=== PATIENT | male | born 1990 | race Hispanic/Latino ===

== ENCOUNTER 2020-06-19 20:46 | Emergency (ER) | payer SELFPAY ==
[~2020-06-19] VITALS: Ht 175.3 cm; Wt 110.7 kg
[2020-06-19] MEDS ORDERED: TETANUS/DIPHTHERIA TOX ADULT 0.5 ML SYR IM ONE (21:30)
[2020-06-19] MEDS ORDERED: BACITRACIN ZINC 0.9GM TP ONE ×2 (21:30→21:51)
--- NOTE | 2020-06-19 21:39 | NUR ---
IN TO CLEAN AND SUTURE WOUND
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
[2020-06-19] MEDS ORDERED: TETANUS/DIPHTHERIA TOX ADULT 0.5 ML SYR ONE (21:52)
[2020-06-19] MEDS ORDERED: LIDOCAINE HCL 1% LOCAL INJ 20 ML VIAL ONE (22:40)
[2020-06-20 00:17] VITALS: BP 132/66
--- NOTE | 2020-06-20 01:41 | Emergency Department Note ---
History of Present Illnes History of Present Illness Chief Complaint: Laceration History of Present Illness This is a 29 year old right handed male who presents with laceration to his left hand this afternoon. He states that he tripped in a hole, causing the fall and landed on outstretched hand on broken sharp concrete. His tetanus shot is not up-to-date. He denies any numbness tingling or weakness of the affected hand. He states that he washed the wound out with tap water. He denies any possibility of foreign body, including rocks or concrete. Historian: Patient Arrival Mode: Car Customer Insight Analyst Required: No Onset (how long ago): hour(s) Onset quality: sudden Timing of current episode: constant Progression: unchanged Chronicity: new Context: Reports trauma/injury; Denies recent illness Relieving factors: none Exacerbating factors: none Treatments prior to arrival: none Past Medical/Family History Physician Review I have reviewed the patient's past medical and family history. Any updates have been documented here. Past Medical History Recent Fever: No Clinical Suspicion of Infectio: No New/Unexplained Change in Ment: No Past Medical History: None Past Surgical History: None Social History Smoking Cessation: Never Smoker Alcohol Use: Occasional Other Any Pre-Existing Lines (PICC,: No Review of Systems Review of Systems Constitutional: Reports no symptoms EENTM: Reports no symptoms Cardiovascular: Reports no symptoms Respiratory: Reports no symptoms; Denies as per HPI, Denies change in phlegm color, Denies chest congestion, Denies cough, Denies hemoptysis, Denies excessive phlegm production, Denies pain on inspiration, Denies pain with cough, Denies dyspnea, Denies dyspnea on exertion, Denies snoring, Denies stridor, Denies wheezing, Denies other Gastrointestinal: Reports no symptoms Genitourinary: Reports no symptoms Musculoskeletal: Reports as per HPI Integumentary: Reports as per HPI Neurological: Reports no symptoms Psychological: Reports no symptoms Hematological/Lymphatic: Reports no symptoms Physical Exam Related Data Allergies: Coded Allergies: No Known Drug Allergies (Verified Allergy, Unknown, 06/19/20) Triage Vital Signs Vital Signs Date Time Temp Pulse Resp B/P (MAP) Pulse Ox O2 Delivery O2 Flow Rate FiO2 06/19/20 21:08 99.2 87 18 137/67 100 Room Air Physical Exam CONSTITUTIONAL Constitutional: Present well-developed, Present well-nourished HENT HENT: Present normocephalic, Present atraumatic, Present oropharynx clear/moist, Present nose normal HENT L/R: Present left ext ear normal, Present right ext ear normal EYES NECK PULMONARY Pulmonary: Present effort normal, Present breath sounds normal CARDIOVASCULAR Cardiovascular: Present regular rhythm, Present heart sounds normal, Present capillary refill normal, Present normal rate GASTROINTESTINAL Abdominal: Present soft, Present nontender, Present bowel sounds normal GENITOURINARY Genitourinary: Present exam deferred SKIN Skin: Present other (laceration) MUSCULOSKELETAL Musculoskeletal: Present ROM normal NEUROLOGICAL Neurological: Present alert, Present oriented x 3, Present no gross motor or sensory deficits PSYCHOLOGICAL Psychological: Present mood/affect normal, Present judgement normal Procedures Laceration Laceration: Laceration 1 (two triangular adjacent flaps.) Site: hand Side: left (ulnar side) Size (cm): 5.5 Depth: involves muscle layer Local anesthesia: lidocaine 1% Pre-repair: wound exposed (explored to base of wound in bloodless field. No FB. Excised fat tissue in order for wound to approximate.), irrigated extensively, deep structures intact Skin layer closed with: nylon Size (cm): 4-0 Number of sutures: 11 Technique: simple, interrupted Technique: simple, interrupted Muscle layer closed with: other (absorbable polysorb) Size (cm): 4-0 Number of sutures: 11 Technique: simple, interrupted Additional comments tolerated well, no complications. Antibiotic ointment applied, bandaged, and splinted. Assessment & Plan Medical Decision Making MDM Patient with deep hand wound involving muscle tissue on ulnar aspect of hand. Two triangular adjacent flaps. Required deep sutures to approximate wound margins and then closed with cutaneous sutures. Assessment & Plan Final Impression: (1) Laceration of hand, left, complicated (2) Laceration of hand, left Depart Disposition: HOME, SELF-CARE Last Vital Signs Date Time Temp Pulse Resp B/P (MAP) Pulse Ox O2 Delivery O2 Flow Rate FiO2 06/19/20 21:08 99.2 87 18 137/67 100 Room Air Medications in the ED Tetanus/ Diphtheria Toxoids 0.5 ml ONCE ONCE IM Last administered on 06/19/20at 21:52; Admin Dose 0.5 ML; Start 06/19/20 at 21:30; Stop 06/19/20 at 21:31; Status DC Bacitracin Zinc 1 ea ONCE ONCE TP ; Start 06/19/20 at 21:30; Stop 06/19/20 at 21:31; Status DC Bacitracin Zinc 1 ea STK-MED ONCE TP ; Start 06/19/20 at 21:51; Stop 06/19/20 at 21:46; Status DC Tetanus/ Diphtheria Toxoids 0.5 ml STK-MED ONCE .ROUTE ; Start 06/19/20 at 21:52; Stop 06/19/20 at 21:46; Status DC Lidocaine HCl 20 ml STK-MED ONCE .ROUTE ; Start 06/19/20 at 22:40; Stop 06/19/20 at 22:36; Status DC DOM FARRELL MD Jun 20, 2020 01:41
== END 2020-06-20 00:17 | disposition home or self-care (01) ==
LOC: FSED 21:10
DX: S61.412A Laceration without foreign body of left hand, initial encounter (principal); W01.198A Fall on same level from slipping, tripping and stumbling with subsequent striking against other object, initial encounter; Y93.01 Activity, walking, marching and hiking
CPT/HCPCS: 13132; 90471; 90714; 96372; 99283; J2001